=== PATIENT | female | born 1940 | race Caucasian/White ===

== ENCOUNTER 2019-04-13 16:15 | Emergency (ER) | payer MEDICARE, BC ==
[~2019-04-13] VITALS: Ht 154.9 cm; Wt 58.5 kg
[2019-04-13] MEDS ORDERED: LEVO88TA5 PO (16:33)
[2019-04-13] MEDS ORDERED: TRAZ-182 PO (16:33)
[2019-04-13] MEDS ORDERED: DULO60CA45 PO (16:33)
--- NOTE | 2019-04-13 17:34 | NUR ---
PATIENT WAS SEEN BY MD. IMAGING TESTS DONE. CERVICAL COLLAR APPLIED. DC, RX (WITH PRECAUTIONS) AND F/U INSTRUCTIONS GIVEN AND EXPLAINED TO PATIENT WHO STATES SHE UNDERSTANDS ALL INSTRUCTIONS.
== END 2019-04-13 17:39 | disposition home or self-care (01) ==
LOC: ER 16:17
DX: S16.1XXA Strain of muscle, fascia and tendon at neck level, initial encounter (principal); M25.511 Pain in right shoulder; M25.551 Pain in right hip; M54.5 Low back pain; Z88.0 Allergy status to penicillin; Z88.2 Allergy status to sulfonamides; Z88.8 Allergy status to other drugs, medicaments and biological substances; Z79.899 Other long term (current) drug therapy; V43.52XA Car driver injured in collision with other type car in traffic accident, initial encounter; Y93.89 Activity, other specified; Y92.89 Other specified places as the place of occurrence of the external cause; Y99.8 Other external cause status
CPT/HCPCS: 72125; 72170; 73030; 73502; A4663